=== PATIENT | female | born 2000 | race Caucasian/White ===

== ENCOUNTER → 2021-10-06 | Outpatient (CLI) | payer MEDICAID ==
[2021-10-13 14:22] LABS: AFFIRM VAGINITIS PANEL RESULTS AMS
== END ==
LOC: LAB 10:52
PROVIDERS: Physician Assistant
DX: N89.8 Other specified noninflammatory disorders of vagina (principal)

== ENCOUNTER → 2022-08-17 | Outpatient (CLI) | payer MEDICAID ==
[2022-08-19 17:07] LABS: ANA SCREEN with REFLEX Negative (Negative)
== END ==
LOC: LAB 12:16
PROVIDERS: Nurse Practitioner
DX: M25.50 Pain in unspecified joint (principal)

== ENCOUNTER → 2023-06-27 | Outpatient (CLI) | payer MEDICAID | LOC: LAB 08:25 | DX: N39.0 Urinary tract infection, site not specified (principal) ==